=== PATIENT | male | born 1955 | race Caucasian/White ===

== ENCOUNTER 2022-06-28 11:03 | Emergency (ER) | payer MEDICARE ==
[2022-06-28] MEDS ORDERED: Albuterol/Ipratropium 3.0-0.5 MG/3 ML Neb Soln ONE (11:14)
[2022-06-28] MEDS ORDERED: Albuterol/Ipratropium 3.0-0.5 MG/3 ML Neb Soln NEB ONE (11:18)
[2022-06-28] MEDS ORDERED: predniSONE 20 MG Tab PO ONE (11:23)
[2022-06-28] MEDS ORDERED: Albuterol 8 GM Inhaler INH STA (11:25)
[2022-06-28] MEDS ORDERED: Albuterol 0.5% 5 MG/ML Neb Soln 20 ML Bottle NEB ONE (11:38)
[2022-06-28] MEDS ORDERED: Albuterol 0.083% 2.5 MG/3 ML Neb Soln NEB ONE (12:15)
[2022-06-28 12:48] LABS: CORONAVIRUS COVID-19 NAA NEGATIVE (NEGATIVE); INFLUENZA A NAA NEGATIVE (NEGATIVE); INFLUENZA B NAA NEGATIVE (NEGATIVE)
== END 2022-06-28 13:35 | disposition home or self-care (01) ==
LOC: MW.ED 11:03
DX: J45.909 Unspecified asthma, uncomplicated (principal); Z79.899 Other long term (current) drug therapy; Z20.822 Contact with and (suspected) exposure to COVID-19
CPT/HCPCS: 0240U; 36415; 71045; 84484; 93005; 99285; A9270; J7620-GY

== ENCOUNTER 2022-09-11 10:13 | Day surgery (SDC) | payer BC, MEDICARE ==
[~2022-09-11 10:13] MED LIST: Lactated Ringers 1,000 ML IV SCH
[2022-09-11] MEDS ORDERED: Propofol 200 MG/20 ML SDV ONE ×3 (10:19→11:48)
[2022-09-11] MEDS ORDERED: Lactated Ringers 1,000 ML IV SCH (12:30)
== END 2022-09-11 13:04 | disposition home or self-care (01) ==
LOC: MW.SDS 10:13
PROVIDERS: ATTEND Surgery
DX: K29.50 Unspecified chronic gastritis without bleeding (principal); K31.89 Other diseases of stomach and duodenum; K22.89 Other specified disease of esophagus; K57.30 Diverticulosis of large intestine without perforation or abscess without bleeding; K44.9 Diaphragmatic hernia without obstruction or gangrene; I25.10 Atherosclerotic heart disease of native coronary artery without angina pectoris; J45.909 Unspecified asthma, uncomplicated; Z79.82 Long term (current) use of aspirin; Z95.818 Presence of other cardiac implants and grafts; Z87.891 Personal history of nicotine dependence; Z87.11 Personal history of peptic ulcer disease; Z80.52 Family history of malignant neoplasm of bladder; Z98.890 Other specified postprocedural states
CPT/HCPCS: 43239; 45378; J2704; J7120